=== PATIENT | female | born 1995 | race Caucasian/White ===

== ENCOUNTER 2019-04-18 20:34 | Emergency (ER) | payer OTHER ==
[~2019-04-18] VITALS: Ht 162.6 cm; Wt 50.8 kg
[2019-04-18 21:25] VITALS: BP 116/74
--- NOTE | 2019-04-18 21:28 | NUR ---
to lobby a/w bed ambulatory
--- NOTE | 2019-04-18 21:45 | NUR ---
24/F PRESENTS TO ED WITH FAMILY/FRIEND, C/O CAT BITE ON RLE YESTERDAY MORNING. 2 BITE KEARNS WITH ECCHYMOSIS ON RLE, +CMS. DENIES FEVER/CHILLS. PT AWAKE AND ALERT, SKIN NORMAL COLOR WARM AND DRY, RR EVEN AND UNLABORED. DENIES MED HX. RX CONTROL
[2019-04-18] MEDS ORDERED: RABIES VACCINE 2.5 IU VIAL IMVAC ONE (21:50)
[2019-04-18] MEDS ORDERED: RABIES IMMUNE GLOBULIN 150 IU/ML IM ONE (21:50)
--- NOTE | 2019-04-18 21:57 | NUR ---
RABIES IMMUNEGLOBIN NOT IN ER PYXIS, CALLED [facility] [employer]. PER W[facility] [employer], NO RABIES IMMUNEGLOBIN IN ENTIRE HOSPITAL PER PHARMACIST DIRECTOR DARYL. DR BARBER MADE AWARE.
--- NOTE | 2019-04-18 22:30 | NUR ---
CALLED MAYE ZAMUDIO RN FROM [facility], WAS NOTIFIED THAT THEY CARRY RABIES IMMUNOGLOBIN, DR BARBER MADE AWARE, PT INSTRUCTED TO GO TO [facility] WHO VERBALIZED UNDERSTANDING.
[2019-04-18 22:36] VITALS: BP 114/70
--- NOTE | 2019-04-18 22:36 | NUR ---
Patient discharged with v/s stable. Written and verbal after care instructions given and explained. Patient verbalized understanding. Ambulatory with steady gait. All questions addressed prior to discharge. Advised to follow up with PMD.
== END 2019-04-18 22:36 | disposition home or self-care (01) ==
LOC: MED 20:34
DX: S81.851A Open bite, right lower leg, initial encounter (principal); Z23 Encounter for immunization; Z88.0 Allergy status to penicillin; W55.01XA Bitten by cat, initial encounter; Y93.89 Activity, other specified; Y92.89 Other specified places as the place of occurrence of the external cause; Y99.8 Other external cause status
CPT/HCPCS: 90375; 90471; 90675; 99283

== ENCOUNTER 2019-04-20 17:40 | Emergency (ER) | payer OTHER ==
[~2019-04-20] VITALS: Ht 162.6 cm; Wt 52.2 kg
[2019-04-20 17:52] VITALS: BP 101/69
--- NOTE | 2019-04-20 17:57 | NUR ---
WAIT AT LOBBY.
--- NOTE | 2019-04-20 19:29 | NUR ---
PT AMBULATED TO CHAIR B
[2019-04-20] MEDS ORDERED: RABIES VACCINE 2.5 IU VIAL IMVAC ONE (19:45)
--- NOTE | 2019-04-20 19:45 | NUR ---
PATIENT ASSESSMENT COMPLETED. PATIENT SITTING UP IN CHAIR. ASSESSMENT NOTE: BIB SELF STATING SHE RECIEVED THE FIRST DOSE OF THE RABIES VACCINE ON THURSDAY AND NEEDS HER SECOND DOSE. PATIENT STATING NO SYMPTOMS AT THIS TIME. LUNGS CLEAR, ABD SOFT. NO FEVERS, COUGH, SOB, CHILLS REPORTED.
[2019-04-20 20:30] VITALS: BP 101/69
== END 2019-04-20 20:30 | disposition home or self-care (01) ==
LOC: MED 17:40
DX: Z23 Encounter for immunization (principal); Z48.00 Encounter for change or removal of nonsurgical wound dressing; W55.01XD Bitten by cat, subsequent encounter
CPT/HCPCS: 90471; 90675; 99283

== ENCOUNTER 2019-04-24 08:43 | Emergency (ER) | payer OTHER ==
[~2019-04-24] VITALS: Ht 162.6 cm; Wt 52.2 kg
--- NOTE | 2019-04-24 08:48 | NUR ---
pt ambulated to er bed 04
[2019-04-24 08:50] VITALS: BP 99/73
--- NOTE | 2019-04-24 08:50 | NUR ---
24 y/o f c/c follow up for rabbies vaccination. bitten by a cat a week ago. pt allergies pnc. no hx. rx control, ibuprofen. no n/v/d. side rail x1. pt asymptomatic.
--- NOTE | 2019-04-24 09:07 | NUR ---
ERMD AT BEDSIDE
[2019-04-24] MEDS ORDERED: RABIES VACCINE 2.5 IU VIAL IMVAC ONE (09:10)
[2019-04-24 09:39] VITALS: BP 99/73
== END 2019-04-24 09:39 | disposition home or self-care (01) ==
LOC: MED 08:43
DX: T14.8XXD Other injury of unspecified body region, subsequent encounter (principal); Z21 Asymptomatic human immunodeficiency virus [HIV] infection status; Z88.0 Allergy status to penicillin; W55.01XD Bitten by cat, subsequent encounter
CPT/HCPCS: 90471; 90675; 99283

== ENCOUNTER 2019-05-02 07:35 | Emergency (ER) | payer OTHER ==
[~2019-05-02] VITALS: Ht 162.6 cm; Wt 52.2 kg
[2019-05-02 07:40] VITALS: BP 109/72
--- NOTE | 2019-05-02 07:47 | NUR ---
Patient ambulated to bed 8 with family. RN evaluating patient at bedside.
--- NOTE | 2019-05-02 07:51 | NUR ---
24 y/o F presents to ER for recheck. Pt was bitten 2 weeks ago by a stray cat on [address]. No redness or swelling noted. Pt denies pain, pain level 0/10. Pt here for 4th dose of rabies vaccine. Pt mother at bedside with pt. Allergies: NKA Med hx: none
--- NOTE | 2019-05-02 07:54 | NUR ---
Dr. Duke at pt bedside
[2019-05-02] MEDS ORDERED: RABIES VACCINE 2.5 IU VIAL IMVAC ONE (07:55)
[2019-05-02 08:14] VITALS: BP 109/72
== END 2019-05-02 08:14 | disposition home or self-care (01) ==
LOC: MED 07:35
DX: L98.9 Disorder of the skin and subcutaneous tissue, unspecified (principal); W55.01XA Bitten by cat, initial encounter; Y93.89 Activity, other specified; Y92.89 Other specified places as the place of occurrence of the external cause; Y99.8 Other external cause status
CPT/HCPCS: 90471; 90675; 99283